=== PATIENT | female | born 1960 | race Caucasian/White ===

== ENCOUNTER 2018-08-22 11:16 | Emergency (ER) | payer OTHER ==
[~2018-08-22] VITALS: Ht 152.4 cm; Wt 72.6 kg
[2018-08-22 11:23] VITALS: BP 129/94
--- NOTE | 2018-08-22 12:12 | NUR ---
PT TAKEN TO RAD VIA WHEELCHAIR
--- NOTE | 2018-08-22 12:15 | NUR ---
ASSISTED TO RESTROOM; PT UNABLE TO PROVIDE A URINE SAMPLE AT THIS TIME.
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
--- NOTE | 2018-08-22 12:20 | NUR ---
PT TAKEN TO RADIOLOGY VIA WHEELCHAIR.
--- NOTE | 2018-08-22 12:24 | NUR ---
PT RETURNED FROM RAD VIA WHEELCHAIR
--- NOTE | 2018-08-22 12:30 | NUR ---
PT UNABLE TO GIVE UA AT THIS TIME
[2018-08-22 13:31] VITALS: BP 129/94
--- NOTE | 2018-08-22 13:32 | NUR ---
Patient discharged with v/s stable. Written and verbal after care instructions given and explained. Patient alert, oriented and verbalized understanding of instructions. Ambulatory with steady gait. All questions addressed prior to discharge. ID band removed. Patient advised to follow up with PMD. Rx of Motrin and Tylenol given. Patient educated on indication of medication including possible reaction and side effects. Opportunity to ask questions provided and answered.
== END 2018-08-22 13:32 | disposition home or self-care (01) ==
LOC: MED 11:16
DX: S39.012A Strain of muscle, fascia and tendon of lower back, initial encounter (principal); F17.210 Nicotine dependence, cigarettes, uncomplicated; Z88.0 Allergy status to penicillin; W22.8XXA Striking against or struck by other objects, initial encounter; Y93.89 Activity, other specified; Y92.89 Other specified places as the place of occurrence of the external cause; Y99.0 Civilian activity done for income or pay
CPT/HCPCS: 72110; 99283

== ENCOUNTER 2018-12-10 13:31 | Emergency (ER) | payer OTHER ==
[~2018-12-10] VITALS: Ht 152.4 cm; Wt 65.8 kg
[2018-12-10 13:41] VITALS: BP 117/76
--- NOTE | 2018-12-10 14:08 | NUR ---
Pt. presented to the ed with the chief c/o right foot pain for 3 days. reports pain only when walking. In bed at this time. Denies pain now. Swollen both legs noted. Per pt. she takes water pills, ran out of meds since a month. Denies fall. Hx of rib fracture, HTN. Denies any other problems at this time. THREE KNIFE TRIMMER at the bedside evaluating the pt.
[2018-12-10] MEDS ORDERED: IBUPROFEN 600 MG TAB PO ONE (14:15)
--- NOTE | 2018-12-10 15:01 | NUR ---
PT RESTING IN BED WITH EYES CLOSED, EASILY ARROUSABLE. WILL CONTINUE TO MONITOR.
[2018-12-10 15:29] VITALS: BP 132/79
--- NOTE | 2018-12-10 15:30 | NUR ---
Patient discharged with v/s stable. Written and verbal after care instructions given and explained. Patient alert, oriented and verbalized understanding of instructions. Ambulatory with steady gait with crutches. All questions addressed prior to discharge. ID band removed. Patient advised to follow up with PMD. Rx of HCTZ, IBUPROFEN given. Patient educated on indication of medication including possible reaction and side effects. Opportunity to ask questions provided and answered.
== END 2018-12-10 15:30 | disposition home or self-care (01) ==
LOC: MED 13:31
DX: M79.671 Pain in right foot (principal); I10 Essential (primary) hypertension; F17.210 Nicotine dependence, cigarettes, uncomplicated; Z76.0 Encounter for issue of repeat prescription; Z88.0 Allergy status to penicillin
CPT/HCPCS: 73630; 99283; Q0092

== ENCOUNTER 2019-03-03 19:00 | Emergency (ER) | payer OTHER ==
[~2019-03-03] VITALS: Ht 149.9 cm; Wt 74.8 kg
[2019-03-03 19:20] VITALS: BP 148/106
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
--- NOTE | 2019-03-03 20:24 | NUR ---
PT RETURNED FROM XRAY
--- NOTE | 2019-03-03 20:31 | NUR ---
PA CLYDE WITH PT
--- NOTE | 2019-03-03 20:44 | NUR ---
PT R KNEE WRAPPED WITH TWO 3" SAM WRAPS [facility] WNL BEFORE AND AFTER
[2019-03-03 20:50] VITALS: BP 148/106
--- NOTE | 2019-03-03 20:50 | NUR ---
PT DISCHARGED WITH PAPERWORK. EDUCATED PT REGARDING MEDICATIONS AND D/C INSTRUCTIONS. PT VERBALIZED TEACHING WITH UNDERSTANDING. TOLD PT TO FOLLOW UP WITH PCP AND WHEN TO RETURN TO ED. PT AT STABLE CONDITION. ALL QUESTIONS ANSWERED
== END 2019-03-03 20:50 | disposition home or self-care (01) ==
LOC: MED 19:00
DX: S86.911A Strain of unspecified muscle(s) and tendon(s) at lower leg level, right leg, initial encounter (principal); I10 Essential (primary) hypertension; Z76.0 Encounter for issue of repeat prescription; Z88.0 Allergy status to penicillin; X58.XXXA Exposure to other specified factors, initial encounter; Y92.89 Other specified places as the place of occurrence of the external cause; Y93.89 Activity, other specified; Y99.8 Other external cause status
CPT/HCPCS: 73562; 99283

== ENCOUNTER 2019-05-09 19:16 | Emergency (ER) | payer OTHER ==
[~2019-05-09] VITALS: Ht 152.4 cm; Wt 75.8 kg
[2019-05-09 19:24] VITALS: BP 154/100
--- NOTE | 2019-05-09 19:30 | NUR ---
PT AMBULATES TO BED 02 WITH UPRIGHT, STEADY GAIT. PLACED IN GOWN, ON MONITOR. SURGICAL MASK PROVIDED.
--- NOTE | 2019-05-09 19:40 | NUR ---
59 Y/O FEMALE C/O HACKING COUGH X 1 MONTH. LUNG SOUNDS ARE WHEEZING THROUGHOUT. NO RESP DISTRESS NOTED. NO SOB. NO USE OF ACCESSORY MUSCLE. VSS. A&O X4. PT STATES SHES BEEN COUGHING UP WHITE PHELGM. PT ALSO RAN OUT OF BP MED 4 DAYS AGO. RADIAL PULSES +2. ALLERGIES: PENICILLIN PMH: NC, HIGH CHOLESTEROL, HTN.
--- NOTE | 2019-05-09 19:40 | NUR ---
FLU SWAB COLLECTED AND SENT TO LAB.
[2019-05-09 20:37] VITALS: BP 121/83
--- NOTE | 2019-05-09 20:37 | NUR ---
Patient discharged with v/s stable. Written and verbal after care instructions given and explained. Patient alert, oriented and verbalized understanding of instructions. Ambulatory with steady gait. All questions addressed prior to discharge. ID band removed. Patient advised to follow up with PMD. Rx of TESSALON AND ALBUTEROL given. Patient educated on indication of medication including possible reaction and side effects. Opportunity to ask questions provided and answered. PT GIVEN INFORMATION TO CONTACT AND J CARLOS A PRIMARY CARE PHYSICIAN ASSIGNED.
== END 2019-05-09 20:37 | disposition home or self-care (01) ==
LOC: MED 19:16
DX: J40 Bronchitis, not specified as acute or chronic (principal); I10 Essential (primary) hypertension; F17.210 Nicotine dependence, cigarettes, uncomplicated; Z88.0 Allergy status to penicillin; Z71.6 Tobacco abuse counseling
CPT/HCPCS: 71045; 87804; 99284; Q0092

== ENCOUNTER 2019-06-02 22:36 | Emergency (ER) | payer OTHER ==
[~2019-06-02] VITALS: Ht 152.4 cm; Wt 75.3 kg
[2019-06-02 22:42] VITALS: BP 143/95
--- NOTE | 2019-06-02 22:50 | NUR ---
59 Y/O FEMALE CAME TO ER TO REQUEST HTN MEDICATION REFILL. PT DENIES ANY OTHER ISSUES. DENIES N/V/D; SKIN IS PINK/WARM/DRY; AAOX4 WITH EVEN AND STEADY GAIT; LUNGS CLEAR BL; HR EVEN AND REGULAR; PT DENIES ANY FEVER, CP, SOB, OR COUGH AT THIS TIME; PATIENT STATES PAIN OF 0/10 AT THIS TIME; VSS; PATIENT POSITIONED FOR COMFORT; HOB ELEVATED; BEDRAILS UP X1; BED DOWN AND LOCKED. ER MD MADE AWARE OF PT STATUS. MEDICAL HX: HTN/HIGH CHOLESTEROL ALLERGY: PCN
--- NOTE | 2019-06-02 22:51 | NUR ---
PT AMBULATED TO ER BED 2
[2019-06-02] MEDS ORDERED: NACL 0.9% 500 ML IV ONE (22:55)
--- NOTE | 2019-06-02 22:55 | NUR ---
ERMD BEDSIDE EVALUATING PT
[2019-06-02 23:13] VITALS: BP 143/95
--- NOTE | 2019-06-02 23:13 | NUR ---
Patient discharged with v/s stable. Written and verbal after care instructions given and explained. Patient alert, oriented and verbalized understanding of instructions. Ambulatory with steady gait. All questions addressed prior to discharge. ID band removed. Patient advised to follow up with PMD. Rx of NORVASC/HYDROCHLOROTHIAZIDE given. Patient educated on indication of medication including possible reaction and side effects. Opportunity to ask questions provided and answered.
== END 2019-06-02 23:13 | disposition home or self-care (01) ==
LOC: MED 22:36
DX: I10 Essential (primary) hypertension (principal); E78.5 Hyperlipidemia, unspecified; F17.210 Nicotine dependence, cigarettes, uncomplicated; Z88.0 Allergy status to penicillin
CPT/HCPCS: 99283